=== PATIENT | male | born 1955 | race Caucasian/White ===

== ENCOUNTER 2021-12-16 06:59 | Day surgery (SDC) | payer BC ==
[~2021-12-16 06:59] MED LIST: Lactated Ringers 1,000 ML IV SCH; Lidocaine 1%/Sod Bicarbonate in NS 8.4% 1 ML Syringe IDERM PRN; Sodium Chloride 0.9% 10 ML Syringe FLUSH PRN; Sodium Chloride 0.9% 10 ML Syringe FLUSH SCH
[2021-12-16] MEDS ORDERED: Acetaminophen 325 MG Tab PO SCH (07:24)
[2021-12-16] MEDS ORDERED: Gabapentin 300 MG Cap PO SCH (07:24)
[2021-12-16] MEDS ORDERED: Lidocaine 1% with EPINEPHrine 1:100,000 20 ML MDV ONE ×2 (07:36→09:02)
[2021-12-16] MEDS ORDERED: Bupivacaine 0.5%/EPINEPHrine 1:200,000 50 ML MDV ONE (07:36)
[2021-12-16] MEDS ORDERED: Midazolam 1 MG/ML 2 ML SDV ONE (07:39)
[2021-12-16] MEDS ORDERED: Rocuronium 50 MG/5 ML Vial ONE (07:40)
[2021-12-16] MEDS ORDERED: Propofol 200 MG/20 ML SDV ONE (07:40)
[2021-12-16] MEDS ORDERED: fentaNYL 250 MCG/5 ML SDV ONE (07:40)
[2021-12-16] MEDS ORDERED: Lidocaine 1% 4 ML ONE (07:41)
[2021-12-16] MEDS ORDERED: ceFAZolin 1 GM Vial ONE (07:42)
[2021-12-16] MEDS ORDERED: Ondansetron 4 MG/2 ML SDV ONE (07:42)
[2021-12-16] MEDS ORDERED: ePHEDrine 50 MG/ML SDV ONE (08:43)
[2021-12-16] MEDS ORDERED: Ketorolac 30 MG/ML SDV ONE (08:55)
[2021-12-16] MEDS ORDERED: fentaNYL 100 MCG/2 ML SDV IVPUSH PRN (10:14)
[2021-12-16] MEDS ORDERED: HYDROmorphone 0.5 MG/0.5 ML Syringe IVPUSH PRN (10:14)
[2021-12-16] MEDS ORDERED: Ondansetron 4 MG/2 ML SDV IVPUSH PRN (10:14)
== END 2021-12-16 12:05 | disposition home or self-care (01) ==
LOC: JD.SDS 06:59
PROVIDERS: ATTEND Surgery
DX: K80.10 Calculus of gallbladder with chronic cholecystitis without obstruction (principal); K82.8 Other specified diseases of gallbladder; I25.2 Old myocardial infarction; E11.9 Type 2 diabetes mellitus without complications; L57.0 Actinic keratosis; I25.10 Atherosclerotic heart disease of native coronary artery without angina pectoris; I10 Essential (primary) hypertension; E78.00 Pure hypercholesterolemia, unspecified; J45.909 Unspecified asthma, uncomplicated; Z95.5 Presence of coronary angioplasty implant and graft; Z95.1 Presence of aortocoronary bypass graft; Z79.82 Long term (current) use of aspirin; Z98.890 Other specified postprocedural states; Z79.84 Long term (current) use of oral hypoglycemic drugs; Z79.899 Other long term (current) drug therapy
CPT/HCPCS: 00790; 82947; 93005; A9270-GY; J0690; J1885; J2250; J2405; J2704; J2710; J3010; J3490; J7120